=== PATIENT | female | born 1945 | race Caucasian/White ===

== ENCOUNTER 2020-12-29 09:31 | Outpatient (CLI) | payer MEDICARE | END 2020-12-29 09:32 | disposition home or self-care (01) | LOC: CSHMAMMO 09:31 | PROVIDERS: ATTEND Obstetrics & Gynecology | DX: Z12.31 Encounter for screening mammogram for malignant neoplasm of breast (principal); Z91.89 Other specified personal risk factors, not elsewhere classified; Z80.3 Family history of malignant neoplasm of breast | CPT/HCPCS: 77063; 77067 ==

== ENCOUNTER 2021-07-17 10:31 | Outpatient (CLI) | payer MEDICARE | END 2021-07-17 10:32 | disposition home or self-care (01) | LOC: CSHMRI 10:31 | PROVIDERS: ATTEND Surgery | DX: D32.1 Benign neoplasm of spinal meninges (principal); G95.9 Disease of spinal cord, unspecified | CPT/HCPCS: 72157; 82565 ==

== ENCOUNTER 2021-09-24 12:40 | Outpatient (CLI) | payer MEDICARE | END 2021-09-24 12:41 | disposition home or self-care (01) | LOC: CSHMRI 12:40 | PROVIDERS: ATTEND Otolaryngology | DX: H90.3 Sensorineural hearing loss, bilateral (principal); R90.82 White matter disease, unspecified | CPT/HCPCS: 70553; 82565 ==

== ENCOUNTER 2022-01-05 12:47 | Outpatient (CLI) | payer MEDICARE | END 2022-01-05 12:48 | disposition home or self-care (01) | LOC: CSHMAMMO 12:47 | PROVIDERS: ATTEND Obstetrics & Gynecology | DX: Z12.31 Encounter for screening mammogram for malignant neoplasm of breast (principal); Z80.3 Family history of malignant neoplasm of breast; Z91.89 Other specified personal risk factors, not elsewhere classified | CPT/HCPCS: 77063; 77067 ==

== ENCOUNTER 2022-07-22 08:52 | Outpatient (CLI) | payer MEDICARE | END 2022-07-22 08:53 | disposition home or self-care (01) | LOC: CSHCP 08:52 | PROVIDERS: ATTEND Nurse Practitioner Family | DX: R06.02 Shortness of breath (principal); R91.8 Other nonspecific abnormal finding of lung field; R94.2 Abnormal results of pulmonary function studies | CPT/HCPCS: 71046; 94060; 94726; 94729; 94760 ==

== ENCOUNTER 2023-01-10 13:27 | Outpatient (CLI) | payer MEDICARE | END 2023-01-10 13:28 | disposition home or self-care (01) | LOC: CSHMAMMO 13:27 | PROVIDERS: ATTEND Obstetrics & Gynecology | DX: Z12.31 Encounter for screening mammogram for malignant neoplasm of breast (principal); Z80.3 Family history of malignant neoplasm of breast; Z91.89 Other specified personal risk factors, not elsewhere classified | CPT/HCPCS: 77063; 77067 ==

== ENCOUNTER 2023-03-17 13:02 | Outpatient (CLI) | payer MEDICARE | END 2023-03-17 13:03 | disposition home or self-care (01) | LOC: CSHCT 13:02 | PROVIDERS: ATTEND Surgery | DX: R42 Dizziness and giddiness (principal) | CPT/HCPCS: 70450 ==

== ENCOUNTER 2024-11-10 07:51 | Emergency (ER) | payer MEDICARE ==
[2024-11-10] MEDS ORDERED: Enoxaparin 60 MG (0.6 mL) SYRINGE ONE (08:22)
[2024-11-10] MEDS ORDERED: dilTIAZem 25 MG/5 ML VIAL ONE (08:23)
[2024-11-10 08:25] LABS: #Basophils 0.03 10x3/uL (0.0-0.2); #Eosinophils 0.26 10x3/uL (0.0-0.5); #Monocytes 0.43 10x3/uL (0.0-1.1); #Neutrophils 1.17 10x3/uL (1.5-8.4); %Basophils 0.8 % (0.0-2.0); %Eosinophils 7.2 % (0.0-6.0); %Lymphocytes 47.8 % (18.0-47.0); %Monocytes 11.9 % (0.0-10.0); %Neutrophils 32.3 % (40.0-75.0); Hematocrit 44.9 % (34.9-44.5); Hemoglobin 15.1 g/dL (12.0-15.5); Mean Corpuscular Hemoglobin 30.0 pg (27.0-33.0); Mean Corpuscular Volume 89.3 fL (81.6-98.3); Platelet Count 224 10x3/uL (150-450); Red Blood Cell (RBC) Count 5.03 10x6/uL (3.90-5.03); White Blood Cell (WBC) Count 3.62 10x3/uL (3.5-10.5)
[2024-11-10 08:43] LABS: ALT (SGPT) 28 U/L (Less than 34); AST (SGOT) 31 U/L (11-34); Albumin 3.8 g/dL (3.1-4.5); Alkaline Phosphatase 74 U/L (40-110); Anion Gap 19 mmol/L (10-20); BUN (Urea Nitrogen) 22 mg/dL (9.8-20.1); Bilirubin, Total 0.8 mg/dL (0.3-1.2); Calc. Creatinine Clearance 0 mL/min (70-130); Calcium 9.6 mg/dL (7.8-10.44); Carbon Dioxide 25 mmol/L (23-31); Chloride 101 mmol/L (98-107); Globulin 3.1 g/dL (2.4-3.5); Glucose 143 mg/dL (83-110); Potassium 3.5 mmol/L (3.5-5.1); Sodium 141 mmol/L (136-145)
[2024-11-10 08:48] LABS: Troponin I 0.060 ng/mL (< 0.028)
== END 2024-11-10 12:12 | disposition short-term general hospital (02) ==
LOC: CSHERS 07:51 → CSHERHOLD 10:02 → UNDOADMIN 10:02 → UNDODISIN 12:15
DX: I48.91 Unspecified atrial fibrillation (principal); E86.0 Dehydration
CPT/HCPCS: 36415; 71045; 71275; 80048; 80053; 83605; 83735; 83880; 84443; 84484; 85025; 93005; 93010; 93306; 96361; 96365; 96366; 96372; 96376; J1650; J3475; Q9967

== ENCOUNTER 2025-01-17 12:37 | Outpatient (CLI) | payer MEDICARE | END 2025-01-17 12:38 | disposition home or self-care (01) | LOC: CSHMAMMO 12:37 | PROVIDERS: ATTEND Internal Medicine | DX: Z12.31 Encounter for screening mammogram for malignant neoplasm of breast (principal); Z80.3 Family history of malignant neoplasm of breast; Z91.89 Other specified personal risk factors, not elsewhere classified | CPT/HCPCS: 77063; 77067 ==